=== PATIENT | female | born 1940 | race Caucasian/White ===

== ENCOUNTER → 2017-04-20 | Outpatient (CLI) | payer OTHER, MEDICARE | LOC: FIMAGING 14:49 | PROVIDERS: ATTEND Orthopaedic Surgery | DX: M17.11 Unilateral primary osteoarthritis, right knee (principal) ==

== ENCOUNTER 2017-05-10 06:40 | Observation (INO) | payer OTHER, MEDICARE ==
[2017-04-19 11:50] LABS: % IMMATURE GRANULYOCYTES 0.6 % (0.0-1.1); ABSOLUTE IMMATURE GRANULOCYTES 0.03 10^3/uL (0.00-0.10); ADD DIFF? NO; ADD MORPH? NO; ADD SCAN? NO; ATYPICAL LYMPHOCYTE FLAG 0 (0-99); FRAGMENT RBC FLAG 0 (0-99); HEMATOCRIT 44.8 % (38.0-47.0); HEMOGLOBIN 15.4 g/dL (12.6-16.3); LEFT SHIFT FLG 0 (0-99); LIPEMIA HEMOLYSIS FLAG 90 (0-99); MEAN CELL HEMOGLOBIN CONCENTR. 34.4 g/dL (32.4-36.7); MEAN CELL VOLUME 92.9 fL (81.5-99.8); PLATELET CLUMPS FLAG 0 (0-99); PLATELET COUNT 244 10^3/uL (150-400); RED BLOOD CELL COUNT 4.82 10^6/uL (4.18-5.33); RED CELL DISTRIBUTION WIDTH 11.9 % (11.5-15.2)
[~2017-05-10 06:40] MED LIST: ROPIVACAINE 0.2% 80 MG, EPINEPHrine 0.2 MG, KETOROLAC TROMETHAMINE 30 MG in BAG 0 ML IU ONE; TRANEXAMIC ACID 3,000 MG in NS 50 ML IRR ONE
[2017-05-10] MEDS ORDERED: VANCOMYCIN 1 GM VIAL ONE (06:59)
[2017-05-10] MEDS ORDERED: TRANEXAMIC ACID 3,000 MG/50 ML BAG IRR ONE (06:59)
[2017-05-10] MEDS ORDERED: FAMOTIDINE 20 MG TAB PO ONE (07:06)
[2017-05-10] MEDS ORDERED: ACETAMINOPHEN 325 MG TAB PO ONE (07:06)
[2017-05-10] MEDS ORDERED: ALENDRONATE SODIUM 70 MG TAB PO SCH (07:06)
[2017-05-10] MEDS ORDERED: DEXAMETHASONE 4 MG/ML VIAL IVP ONE (07:06)
[2017-05-10] MEDS ORDERED: ceFAZolin 2 GM/DEXTROSE 100 ML IV ONE (07:06)
[2017-05-10] MEDS ORDERED: LR 1,000 ML IV ONE (07:24)
[2017-05-10] MEDS ORDERED: PROPOFOL 200 MG/20 ML VIAL ONE ×3 (07:58→09:08)
[2017-05-10] MEDS ORDERED: MIDAZOLAM 2 MG/2 ML VIAL IVP ONE (09:03)
--- NOTE | 2017-05-10 09:03 | PDANEPAE ---
ANE History of Present Illness right knee pain ANE Past Medical History - Cardiovascular History Hx Hypertension: No Hx Arrhythmias: No Hx Chest Pain: No Hx Coronary Artery / Peripheral Vascular Disease: No Hx CHF / Valvular Disease: No Hx Palpitations: No - Pulmonary History Hx COPD: No Hx Asthma/Reactive Airway Disease: No Hx Recent Upper Respiratory Infection: No Hx Oxygen in Use at Home: No Hx Sleep Apnea: No Sleep Apnea Screening Result - Last Documented: Negative Pulmonary History Comment: SARCOIDOSIS - INHALER. PULMONARY EMBOLI X4 - Neurologic History Hx Cerebrovascular Accident: No Hx Seizures: No Hx Dementia: No - Endocrine History Hx Diabetes: No - Renal History Hx Renal Disorders: Yes Renal History Comment: TIPPED BLADDER - DOES THERAPY - Liver History Hx Hepatic Disorders: Yes Hepatic History Comment: CHOLECYSTECTOMY - Neurological & Psychiatric Hx Hx Neurological and Psychiatric Disorders: Yes Neurological / Psychiatric History Comment: DEPRESSION - Cancer History Hx Cancer: No - Congenital Disorder History Hx Congenital Disorders: No - GI History Hx Gastrointestinal Disorders: Yes Gastrointestinal History Comment: GERD - Other Health History Other Health History: BRUISES EASILY. OSTEOPOROSIS - Chronic Pain History Chronic Pain: No - Surgical History Prior Surgeries: CATARACTS. FLOYD HIP REPAIRS W/RODS. TUBE/OVARY. CHOLECYSTECTOMY. APPENDECTOMY. KIDNEY STONE. R HIP BUTCH PLACED. L HIP BUTCH PLACED. R RTC REPAIR - POST OP PE ANE Review of Systems - Exercise capacity METS (RN): 4 METS ANE Patient History - Allergies Allergies/Adverse Reactions: No Known Allergies Allergy (Verified 06/26/16 21:10) - Home Medications Home Medications: Aspirin EC [Aspirin EC 81 mg (*)] 81 mg PO DAILY 11/07/14 [Last Taken 05/05/17] Citalopram Hydrobromide [Citalopram HBr] 10 mg PO DAILY 11/07/14 [Last Taken ] Lansoprazole [Lansoprazole 30 mg tab] 30 mg PO BID 11/07/14 [Last Taken 05/09/17 ] buPROPion XL [Wellbutrin 150mg XL] 150 mg PO DAILY 11/07/14 [Last Taken 05/09/17 ] Alendronate Sodium [Fosamax 70 MG (*)] 70 mg PO WE@0700 12/07/15 [Last Taken 1 Week Ago] Fluticasone Hfa 220 Mcg [Flovent 220 MCG Hfa MDI (*)] 2 puffs IH BID 06/26/16 [ Last Taken 05/10/17] Dabigatran Etexilate Mesyl [Pradaxa 150 MG (*)] 150 mg PO BID 03/30/17 [Last Taken 05/08/17] Herbals/Supplements -Info Only 1 ea PO DAILY 03/30/17 [Last Taken 2 Weeks Ago] - NPO status NPO Since - Liquids (Date): 05/09/17 NPO Since - Liquids (Time): 23:00 NPO Since - Solids (Date): 05/09/17 NPO Since - Solids (Time): 17:00 - Anes Hx Anes Hx: no prior problems - Smoking Hx Smoking Status: Never smoked - Family Anes Hx Family Hx Anesthesia Complications: NEG ANE Labs/Vital Signs - Labs Result Diagrams: 04/19/17 11:05 - Vital Signs Blood Pressure: 137/93 Heart Rate: 74 Respiratory Rate: 16 O2 Sat (%): 93 Height: 152.4 cm Weight: 64.41 kg ANE Physical Exam - Airway Neck exam: FROM Mallampati Score: Class 2 Mouth exam: normal dental/mouth exam - Pulmonary Pulmonary: no respiratory distress - Cardiovascular Cardiovascular: regular rate and rhythym - ASA Status ASA Status: III ANE Anesthesia Plan Anesthesia Plan: general endotracheal anesthesia Regional Anesthesia: single shot NB, adductor canal FNB
[2017-05-10] MEDS ORDERED: MIDAZOLAM 2 MG/2 ML VIAL ONE (09:04)
--- NOTE | 2017-05-10 09:10 | PDHPUP ---
History & Physical Update H&P update statement: This history and physical update is based on an assessment of the patient which was completed after admission or registration (within 24 hours), but prior to the surgery/procedure. H&P update: H&P reviewed & patient examined, no change in patient's condition since H&P completed
[2017-05-10] MEDS ORDERED: fentaNYL 100 MCG/2 ML INJ ONE (09:25)
[2017-05-10] MEDS ORDERED: PROMETHAZINE HCL 25 MG/ML INJ IVP PRN ×2 (09:55→10:24)
[2017-05-10] MEDS ORDERED: fentaNYL 100 MCG/2 ML INJ IVP PRN (09:55)
[2017-05-10] MEDS ORDERED: ONDANSETRON 4 MG/2 ML VIAL IVP PRN ×2 (09:55→10:24)
[2017-05-10] MEDS ORDERED: NALOXONE HCL 0.4 MG/ML INJ IVP PRN (09:55)
[2017-05-10] MEDS ORDERED: OXYCODONE/APAP 5/325 TAB PO PRN (09:55)
[2017-05-10] MEDS ORDERED: ACETAMINOPHEN 500 MG TAB PO PRN (09:55)
[2017-05-10] MEDS ORDERED: HYDROmorphONE/DILAUDID 1 MG/ML SYR IVP PRN (09:55)
--- NOTE | 2017-05-10 10:23 | POSTOPPROG ---
Post Op Note Date of Operation: 05/10/17 Surgeon: Kai Means Reverse Engineer: yris means Anesthesiologist: dr. trivedi Anesthesia: GET(General Endotracheal), Other (Specify) (adductor canal block) Pre-op Diagnosis: right knee OA Post-op Diagnosis: same Indication: right knee pain due to OA that failed conservative measures Procedure: R med partial knee arthroplasty Findings: severe medial knee OA Inf/Abcess present in the surg proc area at time of surgery?: No EBL: 50-100
[2017-05-10] MEDS ORDERED: DIPHENOXYLATE/ATROPINE LOMOTIL 1 TAB PO PRN (10:24)
[2017-05-10] MEDS ORDERED: oxyCODONE IR 5 MG TAB PO PRN (10:24)
[2017-05-10] MEDS ORDERED: PHARMACY PAIN CONSULT 1 EA MISC PRN (10:24)
[2017-05-10] MEDS ORDERED: diphenhydrAMINE 25 MG CAP PO PRN (10:24)
[2017-05-10] MEDS ORDERED: METOCLOPRAMIDE 10 MG/2 ML VIAL IVP PRN (10:24)
[2017-05-10] MEDS ORDERED: CYCLOBENZAPRINE 10 MG TAB PO PRN (10:24)
[2017-05-10] MEDS ORDERED: MAGNESIUM HYDROXIDE 30 ML UDCUP PO PRN (10:24)
[2017-05-10] MEDS ORDERED: BISACODYL 10 MG SUPP PR PRN (10:24)
[2017-05-10] MEDS ORDERED: TEMAZEPAM 15 MG CAP PO PRN (10:24)
[2017-05-10] MEDS ORDERED: LACTULOSE 20 GM/30 ML UDCUP PO PRN (10:24)
[2017-05-10] MEDS ORDERED: ONDANSETRON DISINTEGRATING 4 MG TAB PO PRN (10:24)
[2017-05-10] MEDS ORDERED: POLYETHYLENE GLYCOL 3350 17 GM PKT PO PRN (10:24)
[2017-05-10] MEDS ORDERED: PROMETHAZINE HCL 25 MG SUPPR PR PRN (10:24)
--- NOTE | 2017-05-10 10:40 | POSTANESTH ---
Post Anesthetic Evaluation Cardiovascular Status: Normal, Stable Respiratory Status: Normal, Stable Level of Consciousness/Mental Status: Can Participate in Eval Pain Control: Adequate, Prn Tx Ordered Nausea/Vomiting Control: Adequate, Prn Tx Ordered Complications Possibly Related to Anesthesia: None Noted
[2017-05-10] MEDS: FLUTICASONE HFA 220 MCG MDI IH SCH ×2 (11:30→21:25)
[2017-05-10] MEDS: buPROPion XL 150 MG TAB PO SCH ×2 (11:30→12:10)
[2017-05-10] MEDS: PANTOPRAZOLE SODIUM 40 MG TAB PO SCH ×2 (11:30→20:31)
[2017-05-10] MEDS: CITALOPRAM 20 MG TAB PO SCH (12:09)
[2017-05-10] MEDS: LR 1,000 ML IV SCH ×2 (12:23→21:25)
[2017-05-10] MEDS: ACETAMINOPHEN 325 MG TAB PO SCH ×2 (12:23→18:05)
[2017-05-10] MEDS ORDERED: ceFAZolin 2 GM/DEXTROSE 100 ML IV SCH (14:00)
[2017-05-10] MEDS: ceFAZolin 2 GM/DEXTROSE 100 ML IV SCH (16:47)
[2017-05-10 20:23] VITALS: RESP 16
[2017-05-10] MEDS: SENNOSIDES/DOCUSATE SODIUM TAB PO SCH (20:30)
[2017-05-10] MEDS: FAMOTIDINE 20 MG TAB PO SCH (20:31)
[2017-05-11] MEDS: ACETAMINOPHEN 325 MG TAB PO SCH ×2 (00:09→05:56)
[2017-05-11] MEDS: ceFAZolin 2 GM/DEXTROSE 100 ML IV SCH (00:10)
[2017-05-11 03:21] VITALS: O2SAT 95
[2017-05-11 05:37] LABS: HEMATOCRIT 35.3 % (38.0-47.0); HEMOGLOBIN 12.3 g/dL (12.6-16.3)
[2017-05-11 08:16] VITALS: BP 133/90; PULSE 58; TEMP 97.9
[2017-05-11] MEDS: FLUTICASONE HFA 220 MCG MDI IH SCH (08:46)
[2017-05-11] MEDS ORDERED: DABIGATRAN ETEXILATE MESYL 150 MG CAP PO SCH (09:00)
[2017-05-11] MEDS ORDERED: ASPIRIN EC 81 MG TAB PO SCH (09:00)
[2017-05-11] MEDS: CITALOPRAM 20 MG TAB PO SCH (09:06)
[2017-05-11] MEDS: buPROPion XL 150 MG TAB PO SCH (09:07)
[2017-05-11] MEDS: FAMOTIDINE 20 MG TAB PO SCH (09:08)
[2017-05-11] MEDS: SENNOSIDES/DOCUSATE SODIUM TAB PO SCH (09:08)
[2017-05-11] MEDS: PANTOPRAZOLE SODIUM 40 MG TAB PO SCH (09:08)
--- NOTE | 2017-05-11 10:50 | SOAPPROG ---
SOAP Progress Note Assessment/Plan: Assessment: Patient is doing well POD 1 s/p R med MPL Pain management: pain is well controlled on oral pain meds. VTE ppx: recommend aspirin daily for 3 weeks, cont KING and SCDs Anemia: level is expected initially postop. Asymptomatic. Continue to monitor D/c planning: d/c to home today pending release from PT Plan: 05/11/17 10:50 Subjective: Yovana is doing well today, denies SOB ,chest pain and N/V. Objective: Vital Signs Temp Pulse Resp BP Pulse Ox 36.6 C 58 L 16 133/90 H 95 05/11/17 08:00 05/11/17 08:00 05/11/17 08:00 05/11/17 08:00 05/11/17 08:00 Laboratory Results 05/11/17 05:30 05/10/17 05/11/17 05/12/17 05:59 05:59 05:59 Intake Total 4037 Output Total 1163 300 Balance 2874 -300 RLE: incision dressing is clean and dry, NVI, +pf/df ICD10 Worksheet Patient Problems: Problems Problem Status Onset Primary localized osteoarthritis of right knee Acute Hip fracture Acute
--- NOTE | 2017-05-12 12:41 | GDS ---
[f rep st] DISCHARGE SUMMARY ADMISSION DIAGNOSIS: Right knee osteoarthritis. DISCHARGE DIAGNOSIS: Right knee osteoarthritis. PROCEDURE: Right partial knee arthroplasty, medial compartment, robot assisted. VTE PROPHYLAXIS: Recommend patient resume Pradaxa and aspirin. BRIEF DESCRIPTION OF HOSPITAL STAY: Patient was admitted for an elective joint arthroplasty. The p atient tolerated the procedure well and has passed physical therapy. The patient was given appropri ate antibiotic prophylaxis and venous thromboembolism prophylaxis. The patient's pain was well cont rolled on oral pain medication, patient was holding down food, and had urinated. Decision was made to discharge the patient. The patient was given post-operative prescriptions pre-operatively. PLAN: Patient will follow up as scheduled on 06/05 at 9 a.m. /[id number]/MODL
--- NOTE | 2017-05-12 19:46 | GOP ---
[f rep st] OPERATIVE REPORT DATE OF OPERATION: 05/10/2017 SURGEON: Cynthia Brooks MD ELECTRIC KNIFE OPERATOR: JOURDAN Kim ANESTHESIA: Spinal PREOPERATIVE DIAGNOSIS: Right knee osteoarthritis. POSTOPERATIVE DIAGNOSIS: Right knee osteoarthritis. PROCEDURE PERFORMED: YOANDY uni-knee. Right medial compartment partial knee replacement with computer navigation, robotic-assisted. FINDINGS: INDICATIONS: This is a 76-year-old female with progressive pain of the right knee unresponsive to c onservative care. Risks and benefits of surgical intervention were explained in detail. DESCRIPTION OF PROCEDURE: The patient was brought to the operating room and placed on the table in supine position. Spinal anesthesia was induced without difficulty. A pneumatic tourniquet was applie d about the right proximal thigh and the leg was prepped and draped in sterile fashion. Attention wa s turned first to the distal aspect of the 3 femur. At 3 cm proximal to the lateral rise of the femu r, 2 percutaneous half pins were placed for fixation of the femoral array. In a similar fashion, 2 p ins were placed anterolateral on the tibia for fixation of the tibial array. External land marking a nd registration of the hip center was performed without difficulty. After exsanguination by elevation, the tourniquet was inflated to 250 mmHg. Incision was made from the tibial tuberosity to the superior pole of the patella. Dissection was car ried out through the subcutaneous tissue to the deep fascia using Bovie electrocautery for hemostasi s. Medial parapatellar arthrotomy was carried out to the superior pole of the patella. The medial co llateral ligament was elevated and the infrapatellar fat pad was resected. Internal femoral and tibi al registration was carried out without difficulty and the femoral and tibial checkpoints were place d and verified for accuracy. Attention was turned to the femur. The foot print for the size 3 femoral component was cut with the 6 mm bur using the Tittat robotic system and verified for accuracy against the CT based plan. The hole was cut for the femoral post. In a similar fashion, the 6 mm bur was used to cut the foot print for the size 2 tibial component using the BERNIE system and verified for accuracy against the CT based plan . Attention was turned to the posterior aspect of the knee and remnants of the medial meniscus were ex cised. The posterior capsule was injected with ropivacaine, epinephrine and Toradol. Trial reduction was carried out and there was excellent range of motion, alignment and stability using the size 3 f emoral component and the size 2 tibial component., 2 x 8 mm polyethylene. All trials were then removed. The joint was thoroughly irrigated and carefully dried. One package of cement and 1 gram of vancomycin were mixed in the vacuum mixer and placed on the fixation surfaces of all components. The components were implanted and all excess cement was thoroughly removed. Impla nt placement was verified against the CT view plan and found to be excellent. The tourniquet was deflated and all bleeders were coagulated. The wound was thoroughly irrigated and closed using interrupted sutures of 2-0 Vicryl for the joint capsule. The subcu was closed with 3-0 Vicryl and the skin with 4-0 Monocryl. Dermabond and Steri-Strips were applied, followed by a compr essive dressing. The patient was then moved from the operating room to the recovery room in good con dition, having tolerated the procedure well. CASE CLASSIFICATION: Clean. /[id number]/MODL
== END 2017-05-11 12:13 | disposition home or self-care (01) ==
LOC: F3N 06:40 → INTOOBSV 06:40 → F3N 11:34
PROVIDERS: ADMIT Orthopaedic Surgery; ATTEND Orthopaedic Surgery
PROC: 0SRC0JZ Replacement of Right Knee Joint with Synthetic Substitute, Open Approach (ICD-10-PCS; principal; 2017-05-10 09:15)
PROC: 8E0YXBZ Computer Assisted Procedure of Lower Extremity (ICD-10-PCS; principal; 2017-05-10 09:15)
DX: M17.11 Unilateral primary osteoarthritis, right knee (principal); M25.561 Pain in right knee; K21.9 Gastro-esophageal reflux disease without esophagitis; D86.9 Sarcoidosis, unspecified; M81.0 Age-related osteoporosis without current pathological fracture; Z86.711 Personal history of pulmonary embolism; Z87.442 Personal history of urinary calculi; Z79.01 Long term (current) use of anticoagulants; Z79.82 Long term (current) use of aspirin
CPT/HCPCS: 20985; 27446; 73560; 97116; 97161; 97165; C1713; C1776; G8978; G8979; G8980; G8987; G8988; G8989; J0171; J0690; J1100; J1885; J2250; J2704; J2795; J3010; J3370

== ENCOUNTER → 2017-08-14 | Outpatient (CLI) | payer OTHER, MEDICARE | LOC: CIMAGING 09:22 | PROVIDERS: ATTEND Family Medicine | DX: Z12.31 Encounter for screening mammogram for malignant neoplasm of breast (principal) | CPT/HCPCS: G0202 ==

== ENCOUNTER 2017-10-07 14:27 | Emergency (ER) | payer OTHER, MEDICARE ==
[2017-10-07 15:00] VITALS: BP 121/77; PULSE 73; RESP 16; TEMP 97.5; O2SAT 95
--- NOTE | 2017-10-07 15:22 | EDPHY ---
HPI/HX/ROS/PE/MDM Narrative: CHIEF COMPLAINT: Bleeding abrasion to finger HPI: The patient is a 76-year-old female who takes Pradaxa secondary to history of multiple blood clots. Just prior to arrival, the patient scraped her left distal index finger on a razor blade, which caused significant bleeding not responding to pressure. Since arriving in the ER, this bleeding has stopped. She denies any other injuries. REVIEW OF SYSTEMS: Aside from elements discussed in the HPI, a comprehensive 10-point review of systems was reviewed and is negative. PMH: Includes multiple blood clots. Currently on Pradaxa. SOCIAL HISTORY: Retired. Here with her son. PHYSICAL EXAM: General:Patient is alert, in no acute distress. Extremities: Left hand: A small abrasion, measuring 0.25 cm is present on her left distal index finger, between the interphalangeal segments. This is not actively bleeding. There is normal capillary refill and full range of motion and strength throughout the finger. Neuro: Oriented x3. Normal motor function. Normal sensory function. MDM: This patient presents with a very minor abrasion, complicated by the fact that she takes Pradaxa which produced significant bleeding at home. The bleeding has since stopped. I think that it is at high risk for recurrence however, and I have close the wound fully with derma alcantar. We discussed strict return precautions. General Time Seen by Provider: 10/07/17 15:00 Initial Vital Signs: Initial Vital Signs Temperature (C) 36.4 C 10/07/17 14:47 Heart Rate 73 10/07/17 14:47 Respiratory Rate 16 10/07/17 14:47 Blood Pressure 121/77 H 10/07/17 14:47 O2 Sat (%) 95 10/07/17 14:47 O2 Delivery Mode Room Air Allergies/Adverse Reactions: No Known Allergies Allergy (Verified 10/07/17 14:41) Home Medications: Medication Instructions Recorded Aspirin EC [Aspirin EC 81 mg (*)] 81 mg PO DAILY 11/07/14 Citalopram Hydrobromide 10 mg PO DAILY 11/07/14 [Citalopram HBr] Lansoprazole [Lansoprazole 30 mg 30 mg PO BID 11/07/14 tab] buPROPion XL [Wellbutrin 150mg XL] 150 mg PO DAILY 11/07/14 Alendronate Sodium [Fosamax 70 MG 70 mg PO WE@0700 12/07/15 (*)] Fluticasone Hfa 220 Mcg [Flovent 2 puffs IH BID 06/26/16 220 MCG Hfa MDI (*)] Dabigatran Etexilate Mesyl 150 mg PO BID 03/30/17 [Pradaxa 150 MG (*)] Herbals/Supplements -Info Only 1 ea PO DAILY 03/30/17 Departure - Departure Disposition: Home, Routine, Self-Care Clinical Impression: Abrasion Condition: Good Instructions: Skin Adhesive Care (ED) Additional Instructions: Return to the ED if bleeding recurs. Glue will wear off in the next few days. OK to shower but try to keep wound covered with a bandaid for next few days and be gentle. Referrals: NONE *PRIMARY CARE P,. [Primary Care Provider] - As per Instructions
== END 2017-10-07 15:36 | disposition home or self-care (01) ==
LOC: CED 14:27
DX: S60.411A Abrasion of left index finger, initial encounter (principal); Z79.82 Long term (current) use of aspirin; W45.8XXA Other foreign body or object entering through skin, initial encounter

== ENCOUNTER 2017-11-25 20:05 | Inpatient (IN) | payer OTHER, MEDICARE ==
--- NOTE | 2017-11-25 20:25 | EDPHY ---
H & P Stated Complaint: trip & fall L humerus, shoulder & R knee pain Time Seen by Provider: 11/25/17 20:18 HPI/ROS: HPI: This is a 77-year-old female who presents with Chief Complaint: trip & fall L humerus, shoulder & R knee pain Location: Left upper arm, right knee Quality: Injury Duration: Prior to arrival Signs and Symptoms: No bleeding, no radiation, no numbness, no weakness, no tingling, no incontinence, + decreased range of motion, no swelling, + pain Timing: Acute Severity: 10 out 10 Context: Patient presents via EMS with complaints of accidental tripping over coke cans that were on the floor. She fell forward and landed on her left arm. She felt immediate severe, nonradiating pain. The pain was so intense it took her breath away. Her helped her up off of the floor. She denies hitting her head/LOC/amnesia/neck pain/dizziness. Takes Pradaxa and aspirin. EMS gave Versed and Fentanyl en route with moderate relief of pain. Patient reports that she accidentally fell. Six months ago she had a right knee partial replacement. She notes some pain in the anterior portion that is nonradiating in in mild moderate in nature. She was ambulatory at the scene when she was able to get up off of the floor. She is very resistant to move her left arm secondary to her knowing that she has injured "something in her left arm." Right-hand dominant. Last meal was 2 pieces of toast around 1930. Modifying Factors: see above Comment: ROS: see HPI Constitutional: No fever, no chills, no weight loss Eyes: No blurred vision Respiratory: No shortness of breath, no cough Cardiovascular: No chest pain Gastrointestinal: No nausea, no vomiting no diarrhea Genitourinary: No dysuria Extremities: No myalgias Neurologic: No weakness, no numbness Skin: No rashes Hematologic: No bruising, no bleeding MEDICAL/SURGICAL/SOCIAL HISTORY: Medical history: PE, depression, kidney stones, GERD Surgical history: Right knee partial replacement Social history: . CONSTITUTIONAL: elderly talkative pleasant white female, awake and alert, no obvious distress HEENT: Atraumatic and normocephalic, PERRL, EOMI. no globe entrapment, no raccoon eyes. no Almodovar signs.Tympanic membranes clear. No tympanic membrane rupture. Nares patent; no septal hematoma. Oropharynx clear, no exudate and moist pink mucosa. No malocclusion. no dental trauma. Airway patent. No lymphadenopathy. NECK: supple, no midline tenderness, flexion 45 degrees, extension 45 degrees, right and left lateral flexion 45 degrees. No meningismus. Cardiovascular: Normal S1/S2, regular rate, regular rhythm, without murmur rub or gallop. PULMONARY/CHEST: Symmetrical and nontender. no crepitus. Clear to auscultation bilaterally. Good air movement. No accessory muscle usage. ABDOMEN: Soft, nondistended, nontender, no ecchymosis, no rebound, no guarding , no peritoneal signs, no masses or organomegaly. No CVAT. PELVIC: no pain with rocking; bilateral hips flexion 125 degrees, extension 30 degrees, with no pain internal rotation and no pain external rotation. BACK: No midline tenderness, no paraspinous spasm, deep tendon reflexes 2/2, no pain with straight leg raise EXTREMITIES: 2/2 radial and DP/PT pulses, patient is very guarded with her left arm. Left WRIST: Extension to 70, flexion to 80, radial deviation to 20 degree, ulnar deviation to 30, no scaphoid tenderness, no tenderness over ulnar styloid, no tenderness over radial styloid. Left ELBOW: Full extension to 180, flexion to 100, no tenderness over medial epicondyle, no tenderness over lateral epicondyle, no effusion. Left SHOULDER: Able to perform shoulder shrug only. No clavicular deformity appreciated. no Tenderness to palpation over AC joint. Right KNEE: no effusion, no medial and lateral joint line tenderness, full extension to 180, flexion to 90. No pain with varus and valgus exam. No pain with anterior drawer or posterior drawer test. Remote well -healed incision noted anteriorly. no deformities, no clubbing, no cyanosis or edema. NEUROLOGICAL: no focal neuro deficits. GCS 15. SKIN: Warm and dry, no erythema. no rash. Good capillary refill. Source: Patient, Family, EMS Exam Limitations: No limitations - Personal History Current Tetanus/Diphtheria Vaccine: Unsure Current Tetanus Diphtheria and Acellular Pertussis (TDAP): Unsure Tetanus Vaccine Date: 2013 - Medical/Surgical History Hx Asthma: No Hx Chronic Respiratory Disease: No Hx Diabetes: No Hx Cardiac Disease: No Hx Renal Disease: No Hx Cirrhosis: No Hx Alcoholism: No Hx HIV/AIDS: No Hx Splenectomy or Spleen Trauma: No Other PMH: PE, depression, kidney stones, GERD - Social History Smoking Status: Never smoked Constitutional: Initial Vital Signs Temperature (C) 36.5 C 11/25/17 20:06 Heart Rate 73 11/25/17 20:06 Respiratory Rate 20 11/25/17 20:06 Blood Pressure 179/79 H 11/25/17 20:06 O2 Sat (%) 95 11/25/17 20:06 O2 Delivery Mode Room Air Allergies/Adverse Reactions: No Known Allergies Allergy (Verified 10/07/17 14:41) Home Medications: Medication Instructions Recorded Aspirin EC [Aspirin EC 81 mg (*)] 81 mg PO DAILY 11/07/14 Citalopram Hydrobromide 10 mg PO DAILY 11/07/14 [Citalopram HBr] buPROPion XL [Wellbutrin 150mg XL] 150 mg PO DAILY 11/07/14 Alendronate Sodium [Fosamax 70 MG 70 mg PO WE@0700 12/07/15 (*)] Fluticasone Hfa 220 Mcg [Flovent 2 puffs IH BID 06/26/16 220 MCG Hfa MDI (*)] Herbals/Supplements -Info Only 1 ea PO DAILY 03/30/17 Dabigatran Etexilate Mesyl 150 mg PO BID 11/25/17 [Pradaxa 150 MG (*)] Lansoprazole [Lansoprazole 15 mg] 30 mg PO DAILY 11/25/17 Tamsulosin HCl [Flomax 0.4 MG (*)] 0.4 mg PO HS 11/25/17 Medical Decision Making - Diagnostics Imaging Results: Imaging Impressions Knee X-Ray 11/25/17 20:17 Impression: 1. Acute mildly displaced midpole patellar fracture with prepatellar soft tissue swelling and suprapatellar joint effusion. 2. Stable positioning of the medial femoral-tibial compartment hemiarthroplasty , compared to 05/10/2017. Elbow X-Ray 11/25/17 20:18 Impression: There is no acute fracture identified (although the study is slightly limited because of patient positioning). Shoulder X-Ray 11/25/17 20:18 Impression: Acute fracture of the surgical neck of the proximal left humerus with butterfly avulsion of the greater tuberosity. Wrist X-Ray 11/25/17 20:18 Impression: 1. There is no acute fracture identified. 2. Chondrocalcinosis with scapholunate diastasis. 3. Advanced degenerative change involving the distal radial intercarpal row and the thumb carpometacarpal joint. If there is a high clinical concern regarding an occult fracture, conservative management and short-term repeat radiographic follow-up in 7-14 days is suggested. Procedures: Procedure: Splint placement. A left coaptation splint/swath was applied by the Emergency Room isotope technician. After application of the splint I returned and re-examined the patient. The splint was adequately immobilizing the joint and distal to the splint the patient's circulation and sensation was intact. Procedure: Splint placement. A left knee immobilizer was applied by the Emergency Room isotope technician. After application of the splint I returned and re-examined the patient. The splint was adequately immobilizing the joint and distal to the splint the patient's circulation and sensation was intact. ED Course/Re-evaluation: Left shoulder x-ray, left elbow x-ray, left wrist x-ray, right knee x-ray ordered Fall was accidental in nature and witnessed. No neurological deficits. Patient is over 65 years old but denies hitting head as well as wanting Head CT. KNEE: no effusion, medial and lateral joint line tenderness, full extension to 180, flexion to 120. No pain with varus and valgus exam. No pain with anterior drawer or posterior drawer test. x-ray my read shows patellar fracture ; transverse; placed in knee immobilizer Left shoulder x-ray my read shows humeral head fracture; placed in coaptation splint with swath No signs of neurovascular compromise/tenting of skin/compartment syndrome/ extremities and joints examined above and below area of concern and are neurovascularly intact. 2130: ED decision to consult for admission. Patient is unable to bear weight and has fractures in two extremities in advanced age. Spoke with trauma, Dr. Martinez who agrees with downgrading from limited trauma, spoke with hospitalist , Dr. Abbie Garza who agrees with admitting patient for further care and Orthopedics, Dr. Chin, who kindly agrees to consult on patient. Pain currently controlled with 1 dose of IV Dilaudid 1 mg while in the emergency room. This patient was seen under the supervision of my secondary supervising physician. I evaluated care for this patient independently. Discussed this patient with Dr. Goldstein who did not see the patient. Differential Diagnosis: Differential diagnosis includes fracture, nerve injury, ligament injury, sprain , contusion. - Data Points Medications Given: Discontinued Medications Hydromorphone HCl (Dilaudid) 1 mg IVP EDNOW ONE Stop: 11/25/17 20:54 Last Admin: 11/25/17 20:55 Dose: 1 mg Departure - Departure Disposition: [facility] Inpatient Acute Clinical Impression: Chronic anticoagulation Fracture of right patella Qualifiers: Encounter type: initial encounter Fracture type: closed Fracture morphology: longitudinal Fracture alignment: nondisplaced Qualified Code(s): S82.024A - Nondisplaced longitudinal fracture of right patella, initial encounter for closed fracture Fracture of humeral head, left, closed Qualifiers: Encounter type: initial encounter Qualified Code(s): S42.292A - Other displaced fracture of upper end of left humerus, initial encounter for closed fracture Condition: Fair
[2017-11-25] MEDS ORDERED: HYDROmorphONE/DILAUDID 1 MG/ML INJ ONE (20:51)
[2017-11-25] MEDS ORDERED: NS 50 ML BAG IV ONE (20:52)
[2017-11-25] MEDS ORDERED: HYDROmorphONE/DILAUDID 1 MG/ML INJ IVP ONE (20:53)
[2017-11-25] MEDS ORDERED: ACETAMINOPHEN 325 MG TAB PO PRN (21:50)
[2017-11-25] MEDS ORDERED: ONDANSETRON 4 MG/2 ML VIAL IVP PRN (21:50)
[2017-11-25] MEDS: HYDROCODONE/APAP 5/325 TAB PO PRN (23:47)
--- NOTE | 2017-11-26 00:02 | PDCONSULT ---
[employer] Note: Orthopaedics Consult Note DOS: 11/25/2017 CC: Right knee pain, Left shoulder pain HPI: Called by ED to see patient on floor, getting admitted to hospitalist for multiple fractures. 77y F h/o multiple clots s/p SLF at home p/w Right knee patella fracture and Left shoulder fracture. Patient tripped on an unseen case of bad [place] Coke at home. No LOC. Was unable to ambulate afterwards. Immediate RLE, LUE pain. PMHx: Multiple blood clots, kidney stone PSHx: Includes Right unicondylar knee replacement (7 months ago), Bilateral hip cephalomedullary nails, Right rotator cuff surgery, Cataract surgery, appendectomy and cholecystectomy, gynecologic procedure (mistaken ectopic dx) All: NKDA SocHx: nonsmoker, no EtOH, No recreational substances. Lives with ROS: was at baseline prior to this injury except for recent kidney stone diagnosis prompting flomax rx. poor eyesight. PE: AxOx4. Unlabored breathing. Hearing intact to spoken word RUE: full ROM, no TTP, SILT LUE: TTP at shoulder joint. SILT A/R/U/M. 4/5 EPL/APB/FDS/FDP2,5/IO, 2+ DP. In splint RLE: no log roll pain. TTP along patella. Visible knee effusion. Mild edema of knee. SILT S/S/SP/DP/T. 5/5 EHL/FHL/TA/GS. Unable to maintain knee extension leg raise due to pain at knee cap. 2+ DP LLE: NVI, moving well, active ROM Imaging: R patella displaced fracture, transverse. Joint effusion seen. Unicondylar knee implant present - doesn't appear loose. Left shoulder shows reduced glenohumeral joint, valgus impacted humeral neck fracture with GT fragment. A/P: 77y RHD F p/w Left proximal humerus fracture and Right patella fracture - Nonop treatment for Left proximal humerus fracture. We discussed that it might be problematic and require surgery in the future, but there is a reasonable likelihood that if it heals in its current position that she'll not notice big deficits - ORIF Right patella fracture planned for tomorrow given unstable knee extension mechanism. We discussed risks of surgery including infection, bleeding , neurovascular injury, nonunion, malunion, painful hardware, loss of limb, . - Hold pradaxa - Labs plus type and cross 2 units - Appreciate hospitalist care
--- NOTE | 2017-11-26 00:52 | PDGENHP ---
History and Physical - Chief Complaint Fall - History of Present Illness 77 yo F w/ hx of PE's on lifelong AC w/ dabigatran, OA, osteoporosis and multiple orthopedic surgeries in the past presents after a fall. Patient reports she stubbed her toe while in the kitchen at home and fell on her L shoulder and R knee. Evaluation upon arrival in the ED was notable for L humeral fracture and R patellar fracture. Patient is currently doing well with complaints of only minimal pain. She is being admitted for pain control and orthopedic consultation. Her last dose of dabigatran was this morning. History Information - Allergies/Home Medication List Allergies/Adverse Reactions: No Known Allergies Allergy (Verified 10/07/17 14:41) Home Medications: Aspirin EC [Aspirin EC 81 mg (*)] 81 mg PO DAILY 11/07/14 [Last Taken 11/25/17] Citalopram Hydrobromide [Citalopram HBr] 10 mg PO DAILY 11/07/14 [Last Taken 01/07] buPROPion XL [Wellbutrin 150mg XL] 150 mg PO DAILY 11/07/14 [Last Taken 11/25/17 ] Alendronate Sodium [Fosamax 70 MG (*)] 70 mg PO WE@0700 12/07/15 [Last Taken ] Fluticasone Hfa 220 Mcg [Flovent 220 MCG Hfa MDI (*)] 2 puffs IH BID 06/26/16 [ Last Taken 11/25/17] Herbals/Supplements -Info Only 1 ea PO DAILY 03/30/17 [Last Taken 2 Weeks Ago ~ 04/26/17] Dabigatran Etexilate Mesyl [Pradaxa 150 MG (*)] 150 mg PO BID 11/25/17 [Last Taken 11/25/17 08:00] Lansoprazole [Lansoprazole 15 mg] 30 mg PO DAILY 11/25/17 [Last Taken 11/25/17] Tamsulosin HCl [Flomax 0.4 MG (*)] 0.4 mg PO HS 11/25/17 [Last Taken 11/24/17] I have personally reviewed and updated: family history, medical history - Past Medical History DVT - Surgical History Additional surgical history: Multiple orthopedic surgeries (b/l hips, R knee, R shoulder) - Family History Additional family history: Denies family hx of blood clots - Social History Smoking Status: Never smoked Review of Systems Review of Systems: ROS: 10pt was reviewed & negative except for what was stated in HPI & below Physical Exam Physical Exam: Temp Pulse Resp BP Pulse Ox 37.1 C 105 H 18 113/76 96 11/26/17 00:23 11/26/17 00:23 11/26/17 00:23 11/26/17 00:23 11/26/17 00:23 O2 (L/minute) 2 Constitutional: no apparent distress, appears nourished Eyes: PERRL, EOMI Ears, Nose, Mouth, Throat: moist mucous membranes, no oral mucosal ulcers Cardiovascular: regular rate and rhythym, systolic murmur Respiratory: no respiratory distress, clear to auscultation Gastrointestinal: normoactive bowel sounds, soft, non-tender abdomen Skin: warm, normal color Musculoskeletal: other (L arm in sling, R knee in immobilizer) Neurologic: AAOx3, CN II-XII Intact Psychiatric: interacting appropriately, not anxious Lab Data & Imaging Review Imaging Review: Imaging Impressions Knee X-Ray 11/25/17 20:17 Impression: 1. Acute mildly displaced midpole patellar fracture with prepatellar soft tissue swelling and suprapatellar joint effusion. 2. Stable positioning of the medial femoral-tibial compartment hemiarthroplasty , compared to 05/10/2017. Elbow X-Ray 11/25/17 20:18 Impression: There is no acute fracture identified (although the study is slightly limited because of patient positioning). Shoulder X-Ray 11/25/17 20:18 Impression: Acute fracture of the surgical neck of the proximal left humerus with butterfly avulsion of the greater tuberosity. Wrist X-Ray 11/25/17 20:18 Impression: 1. There is no acute fracture identified. 2. Chondrocalcinosis with scapholunate diastasis. 3. Advanced degenerative change involving the distal radial intercarpal row and the thumb carpometacarpal joint. If there is a high clinical concern regarding an occult fracture, conservative management and short-term repeat radiographic follow-up in 7-14 days is suggested. Assessment & Plan Assessment: 77 yo F w/ hx of PE's on lifelong AC, osteoporosis, and multiple prior orthopedic surgeries presents after a fall and found to have L humeral and R patellar fractures. Plan: 1. R patellar fracture - As a result of mechanical fall; per discussion with Dr. Chin will require surgical intervention. Last dose of dabigatran was on the morning prior to admission. - NPO @ MN - Hold dabigatran - Pain control 2. L humeral fracture - Non-surgical per discussion with Dr. Chin. Arm placed in sling. 3. Hx of PE - Patient has first PE 8-10 years ago provoked by shoulder surgery. Since that time she reports 4 or 5 additional episodes of PE's provoked by minor trauma. She is on lifelong AC w/ dabigatran. - Hold dabigatran for upcoming surgery - Would restart as soon as able noting high risk of VTE 4. Osteoporosis - On Fosamax as outpatient 5. OA - S/p b/l MAGDA's, partial R knee replacement, and R rotator cuff surgery. Diet - NPO @ [place] Code - Full Ppx - SCDs Dispo - Admit to inpatient status noting need for pain control, rehab, and surgical intervention
[2017-11-26] MEDS: HYDROCODONE/APAP 5/325 TAB PO PRN ×3 (03:42→18:35)
[2017-11-26 04:51] LABS: PLATELET COUNT 193 10^3/uL (150-400)
[2017-11-26 05:00] LABS: INR 1.21 (0.83-1.16); PROTIME(PATIENT) 15.5 SEC (12.0-15.0)
--- NOTE | 2017-11-26 06:18 | PDMN ---
Medical Necessity Medical necessity: C/M review: est. > 2 MN LOS for eval and TX of acute right patellar fracture, acute left humeral fracture requiring planned 11/26/2017 surgical intervention, ongoing preop NPO, hole dabigatran, pain management, comorbid mechanical fall just prior to this admission, history of PE's on lifelong anticoagulation with dabigatran, osteoarthritis, osteoporosis, multiple orthopedic surgeries, DVT per H/P.
[2017-11-26] MEDS ORDERED: ceFAZolin 2 GM/SWFI 2 GM/20 ML SYR IVP ONE (12:04)
[2017-11-26] MEDS ORDERED: ceFAZolin 2 GM/SWFI 20 ML SYR IVP ONE (12:07)
--- NOTE | 2017-11-26 12:14 | PDANEPAE ---
ANE History of Present Illness fracture of R patella, s/p fall. Also with fracture of proximal humerus ANE Past Medical History - Cardiovascular History Hx Hypertension: No Hx Arrhythmias: No Hx Chest Pain: No Hx Coronary Artery / Peripheral Vascular Disease: No Hx CHF / Valvular Disease: No Hx Palpitations: No - Pulmonary History Hx COPD: No Hx Asthma/Reactive Airway Disease: No Hx Recent Upper Respiratory Infection: No Hx Oxygen in Use at Home: No Hx Sleep Apnea: No Sleep Apnea Screening Result - Last Documented: Negative Pulmonary History Comment: SARCOIDOSIS - INHALER. PULMONARY EMBOLI X4 - Neurologic History Hx Cerebrovascular Accident: No Hx Seizures: No Hx Dementia: No - Endocrine History Hx Diabetes: No Obesity: moderate - Renal History Hx Renal Disorders: Yes Renal History Comment: TIPPED BLADDER - DOES THERAPY - Liver History Hx Hepatic Disorders: Yes Hepatic History Comment: CHOLECYSTECTOMY - Neurological & Psychiatric Hx Hx Neurological and Psychiatric Disorders: Yes Neurological / Psychiatric History Comment: DEPRESSION - Cancer History Hx Cancer: No - Congenital Disorder History Hx Congenital Disorders: No - GI History GERD: mild Hx Gastrointestinal Disorders: Yes Gastrointestinal History Comment: GERD - Other Health History Other Health History: BRUISES EASILY. OSTEOPOROSIS - Chronic Pain History Chronic Pain: No - Surgical History Prior Surgeries: CATARACTS. FLOYD HIP REPAIRS W/RODS. TUBE/OVARY. CHOLECYSTECTOMY. APPENDECTOMY. KIDNEY STONE. R HIP BUTCH PLACED. L HIP BUTCH PLACED. R RTC REPAIR - POST OP PE ANE Review of Systems Review of Systems: - Exercise capacity METS (RN): 4 METS ANE Patient History - Allergies Allergies/Adverse Reactions: No Known Allergies Allergy (Verified 10/07/17 14:41) - Home Medications Home Medications: Aspirin EC [Aspirin EC 81 mg (*)] 81 mg PO DAILY 11/07/14 [Last Taken 11/25/17] Citalopram Hydrobromide [Citalopram HBr] 10 mg PO DAILY 11/07/14 [Last Taken 01/07] buPROPion XL [Wellbutrin 150mg XL] 150 mg PO DAILY 11/07/14 [Last Taken 11/25/17 ] Alendronate Sodium [Fosamax 70 MG (*)] 70 mg PO WE@0700 12/07/15 [Last Taken ] Fluticasone Hfa 220 Mcg [Flovent 220 MCG Hfa MDI (*)] 2 puffs IH BID 06/26/16 [ Last Taken 11/25/17] Herbals/Supplements -Info Only 1 ea PO DAILY 03/30/17 [Last Taken 2 Weeks Ago ~ 04/26/17] Dabigatran Etexilate Mesyl [Pradaxa 150 MG (*)] 150 mg PO BID 11/25/17 [Last Taken 11/25/17 08:00] Lansoprazole [Lansoprazole 15 mg] 30 mg PO DAILY 11/25/17 [Last Taken 11/25/17] Tamsulosin HCl [Flomax 0.4 MG (*)] 0.4 mg PO HS 11/25/17 [Last Taken 11/24/17] - NPO status NPO Since - Liquids (Date): 11/26/17 NPO Since - Liquids (Time): 00:01 NPO Since - Solids (Date): 11/26/17 NPO Since - Solids (Time): 00:01 - Smoking Hx Smoking Status: Never smoked - Family Anes Hx Family Hx Anesthesia Complications: NEG ANE Labs/Vital Signs - Labs Result Diagrams: 11/26/17 04:37 11/26/17 04:37 - Vital Signs Blood Pressure: 120/74 Heart Rate: 84 Respiratory Rate: 16 O2 Sat (%): 94 Height: 152.4 cm Weight: 61.689 kg ANE Physical Exam - Airway Neck exam: FROM Mallampati Score: Class 1 Mouth exam: normal dental/mouth exam (missing L upper front tooth, upper front caps) - Pulmonary Pulmonary: clear to auscultation - Cardiovascular Cardiovascular: regular rate and rhythym - ASA Status ASA Status: III ANE Anesthesia Plan Anesthesia Plan: general endotracheal anesthesia
[2017-11-26] MEDS ORDERED: DEXAMETHASONE 4 MG/ML VIAL ONE (12:27)
[2017-11-26] MEDS ORDERED: PROPOFOL 200 MG/20 ML VIAL ONE (12:27)
[2017-11-26] MEDS ORDERED: fentaNYL 100 MCG/2 ML INJ ONE ×3 (12:27→14:24)
[2017-11-26] MEDS ORDERED: ROCURONIUM 50 MG/5 ML VIAL ONE ×2 (12:27→12:31)
[2017-11-26] MEDS ORDERED: RANITIDINE 50 MG/2 ML VIAL ONE (12:28)
[2017-11-26] MEDS ORDERED: BUPIVACAINE 0.25% 30 ML SDV ONE (12:36)
[2017-11-26] MEDS ORDERED: LIDOCAINE 1% 300 MG/30 ML SDV ONE (12:36)
[2017-11-26] MEDS ORDERED: ESMOLOL HCL 100 MG/10 ML VIAL IV ONE (12:42)
[2017-11-26] MEDS ORDERED: PHENYLEPHRINE HCL 100 MCG/ML SYR ONE (12:52)
[2017-11-26] MEDS ORDERED: ONDANSETRON 4 MG/2 ML VIAL ONE (13:34)
--- NOTE | 2017-11-26 14:16 | HOSPPROG ---
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 First encounter, chart reviewed. Plan: 1. R patellar fracture - - As a result of mechanical fall; - to OR today with Dr. Chin - Last dose of dabigatran was on the morning prior to admission. - Hold dabigatran - Pain control 2. L humeral fracture - -Non-surgical per discussion with Dr. Chin. -Arm placed in sling. 3. Hx of PE - - Patient has first PE 8-10 years ago provoked by shoulder surgery. Since that time she reports 4 or 5 additional episodes of PE's provoked by minor trauma. - She is on lifelong AC w/ dabigatran. - Hold dabigatran for surgery - Would restart as soon as able noting high risk of VTE 4. Osteoporosis - On Fosamax as outpatient 5. OA - S/p b/l MAGDA's, partial R knee replacement, and R rotator cuff surgery. Diet - regular when ok post op Code - Full Ppx - SCDs Dispo - Admit to inpatient status noting need for pain control, rehab, and surgical intervention Subjective: No pain. No issues. Objective: Vital Signs Temp Pulse Resp BP Pulse Ox 36.9 C 84 16 120/74 94 11/26/17 11:05 11/26/17 13:25 11/26/17 13:25 11/26/17 13:25 11/26/17 13:25 Laboratory Results 11/26/17 04:37 11/26/17 04:37 11/25/17 11/26/17 11/27/17 05:59 05:59 05:59 Output Total 325 200 Balance -325 -200 PT 15.5 SEC (12.0-15.0) H 11/26/17 04:37 INR 1.21 (0.83-1.16) H 11/26/17 04:37 - Physical Exam Constitutional: no apparent distress, appears nourished, not in pain Eyes: PERRL, anicteric sclera, EOMI Ears, Nose, Mouth, Throat: moist mucous membranes, hearing normal, ears appear normal Cardiovascular: No JVD, No tachycardia, No edema Respiratory: no respiratory distress, no rales or rhonchi, reduced air movement Gastrointestinal: No tenderness, No ascites, No guarding Skin: warm, normal color, No mottled Musculoskeletal: no joint effusions, pain with ROM, muscular tenderness Psychiatric: not anxious, not encephalopathic, thought process linear ICD10 Worksheet Patient Problems: Problems Problem Status Onset Fracture of right patella Acute Fracture of humeral head, left, closed Acute Chronic anticoagulation Acute Primary localized osteoarthritis of right knee Acute Hip fracture Acute
[2017-11-26] MEDS ORDERED: HYDROmorphONE/DILAUDID 1 MG/ML INJ IVP PRN (14:20)
[2017-11-26] MEDS ORDERED: fentaNYL 100 MCG/2 ML INJ IVP PRN (14:20)
[2017-11-26] MEDS ORDERED: NALOXONE HCL 0.4 MG/ML INJ IVP PRN (14:20)
[2017-11-26] MEDS ORDERED: BACITRACIN ZINC 14.2 GM OINTTUBE TP ONE (14:25)
[2017-11-26] MEDS ORDERED: SUGAMMADEX SODIUM 200 MG/2 ML VIAL IVP ONE (14:33)
--- NOTE | 2017-11-26 15:09 | POSTOPPROG ---
Post Op Note Date of Operation: 11/26/17 Surgeon: Blaze Chin Director Of Partner Marketing: None Anesthesia: GET(General Endotracheal) Pre-op Diagnosis: Right patella fracture Post-op Diagnosis: Same Indication: Unstable extensor mechanism Procedure: ORIF Right patella fracture Inf/Abcess present in the surg proc area at time of surgery?: No EBL: Minimal
--- NOTE | 2017-11-26 15:27 | SUROPNOTE ---
[facility] Operative Report - Surgery Operative Report DOS: 11/26/2017 Attg: Blaze Chin Asst: None Preop Dx: Right patella fracture Postop Dx: Same Procedure: ORIF Right patella fracture Indication: 76y F h/o blood clots on pradaxa p/w Right knee patella fracture and Left proximal humerus fracture. Pt unable to extend leg and radiographs show diastasis of fracture site. Procedure note: After reviewing consent, the patient elected to proceed with the procedure. She was taken to the OR and transferred to the bed. Anesthesia was induced. A tourniquet was placed on the thigh and a lincoln placed. She was positioned supine. The leg was prescrubbed and then prepped and draped in typical fashion. We performed a timeout to confirm surgery, patient, site, and antibiotic status. The leg was exsanguinated and the tourniquet raised. The patient's prior anteromedial scar was partially utilized as well as a superior extension to reach the patella. Flaps were created and the patella exposed. The transverse fracture site was exposed and cleaned. A large amount of old/dark blood issued from the knee after the arthrotomy was performed. The joint was washed out with irrigation. The proximal pole was in a single piece, but the distal pole was comprised of several comminuted fragments. The anterior portion of the unicondylar replacement was visualized and appeared well fixed and intact. A bone clamp was used to transversely reduce the inferior pole fragments. A K- wire was used to hold that reduction. The superior pole was reduced to the inferior pole and two bone clamps used to hold it in position. Two K-wires were advanced anterograde along intended screw paths for the cannulated screws. Once satisfied with their position, the lateral path was drilled and a 4.0 mm cannulated partially threaded screw placed down the path. The process was repeated for the medial screw. The transverse K-wire in the inferior pole was drilled and a 3.5 cannulated screw with a washer placed there to help hold the comminution together. A 20 gauge wire was placed through the two longitudinal screws in a tension band construct. The ends were twisted to provide good compression, the ends were cut, and the twisted portion pushed down to avoid prominence. The wound was thoroughly irrigated again #1 Vicryl was used to repair the retinaculum and close the holes made for the screws in the quad/patellar tendon. 2-O vicryl was used to repair some of kaur fibers directly running over the fracture and to keep some finer comminution in good place. 0 vicryl was used to close the deep fascia over the knee. 2-O vicryl was used to close the subcutaneous layer. Tourniquet was brought down and no excessive bleeding seen A running 2-O nylon suture was used to close the skin. Local anesthetic placed around the wound. A sterile dressing was placed The knee immobilizer was put back on. Count was correct at the conclusion of the case She was taken back to PACU for further monitoring. Complications: None EBL: <25 (though about 100cc of old blood came from the knee joint when arthrotomy down.) Drains: none Specimens: None
--- NOTE | 2017-11-26 16:36 | POSTANESTH ---
Post Anesthetic Evaluation Cardiovascular Status: Normal, Stable Respiratory Status: Normal, Stable Pain Control: Adequate, Prn Tx Ordered Nausea/Vomiting Control: Adequate, Prn Tx Ordered Complications Possibly Related to Anesthesia: None Noted
--- NOTE | 2017-11-26 16:53 | ASMTCMCOM ---
CM Note CM Note Notes: Reviewed chart regarding discharge plan, pt's progress. Pt admitted s/p a fall w/ a left humeral fracture and right patellar fracture; to OR today for surgery. Pt lives w/ her . Discharge needs remain to be determined at this time. CM will cont to follow for any potential needs. Current Discharge Plan: TBD Date Signed: 11/26/2017 04:53 PM Electronically Signed By:Jessica Spencer RN
[2017-11-26] MEDS: oxyCODONE IR 5 MG TAB PO PRN (21:00)
[2017-11-26] MEDS: TAMSULOSIN HCL 0.4 MG CAP PO SCH (21:01)
[2017-11-26] MEDS: ceFAZolin 2 GM/DEXTROSE 100 ML IV SCH (21:01)
[2017-11-26] MEDS: FLUTICASONE HFA 220 MCG MDI IH SCH (22:25)
[2017-11-27] MEDS: ceFAZolin 2 GM/DEXTROSE 100 ML IV SCH (05:16)
[2017-11-27] MEDS: oxyCODONE IR 5 MG TAB PO PRN ×4 (05:16→21:03)
--- NOTE | 2017-11-27 06:31 | SOAPPROG ---
[facility] Progress Note Assessment/Plan: Assessment: 77y F p/w Right patella fracture and Left proximal humerus fracture after SLF over [place] [employer] case now s/p ORIF Right patella, continuing nonop treatment for the proximal humerus Plan: - Recommend d/c of [place] this AM, if hospitalist agrees - Recommend lovenox for anticoag as patient until patient no longer a fall risk and then restarting Pradaxa - WBAT RLE only in knee immobilizer - OK to remove immobilizer at rest in bed if leg stays straight - No knee ROM at this lianet - Keep dressing CDI - getting knee films today - Followup with Dr. Chin in 2-3 weeks for wound check at [facility]. [phone] Subjective: Pain better after pain meds got going. Objective: Vital Signs Temp Pulse Resp BP Pulse Ox 37.0 C 96 19 94/64 L 94 11/27/17 04:00 11/27/17 04:00 11/27/17 04:00 11/27/17 04:00 11/27/17 04:00 Laboratory Results 11/27/17 04:58 11/27/17 04:58 11/26/17 11/27/17 11/28/17 05:59 05:59 05:59 Intake Total 1725 Output Total 325 2450 Balance -325 -725 PT 15.5 SEC (12.0-15.0) H 11/26/17 04:37 INR 1.21 (0.83-1.16) H 11/26/17 04:37 SILT S/S/SP/DP/T. Moving toes and foot well. WWP. Knee dressing intact ICD10 Worksheet Patient Problems: Problems Problem Status Onset Chronic anticoagulation Acute Fracture of humeral head, left, closed Acute Fracture of right patella Acute Hip fracture Acute Primary localized osteoarthritis of right knee Acute
[2017-11-27] MEDS: FLUTICASONE HFA 220 MCG MDI IH SCH ×2 (08:04→21:48)
[2017-11-27] MEDS: CITALOPRAM 20 MG TAB PO SCH (08:40)
[2017-11-27] MEDS: buPROPion XL 150 MG TAB PO SCH (08:41)
[2017-11-27] MEDS: PANTOPRAZOLE SODIUM 40 MG TAB PO SCH (08:41)
[2017-11-27] MEDS ORDERED: Herbals/Supplements -Info Only PO SCH (09:00)
--- NOTE | 2017-11-27 11:15 | ASMTCMCOM ---
CM Note CM Note Notes: Per PT, SNF recommended for patient. She is POD #1 R patella ORIF and requires a knee immobilizer. Patient was fairly groggy when I met with her, but she was amenable to SNF. She lives in [place], so we discussed [facility] and [facility]. I sent referrals to both, and we will await responses and revisit conversation with patient and . Current CM Discharge plan: SNF Date Signed: 11/27/2017 11:14 AM Electronically Signed By:Angelina Amin RN
[2017-11-27] MEDS: HYDROmorphONE/DILAUDID 1 MG/ML INJ IVP PRN ×2 (13:08→21:04)
--- NOTE | 2017-11-27 13:28 | HOSPPROG ---
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 First encounter, chart reviewed. Reviewed care with Dr Chin. * right patellar fracture s/p ORIF *left humeral fx non surgical sling *hx of PE (has had 2 provoked PE's after surgery) restarted Dabigatran *Gait instability concerned because she is on Pradaxa needs close monitoring due to risk of bleeding *Osteoporosis - On Fosamax as outpatient * OA - S/p b/l MAGDA's, partial R knee replacement, and R rotator cuff surgery. *DVT prophylaxis: resumed Pradaxa this evening, athrombic pumpts Dispo - she will need a SNF Subjective: Yovana is having some pain to right knee area, but overall managed. Objective: Vital Signs Temp Pulse Resp BP Pulse Ox 37.0 C 93 18 127/89 H 95 11/27/17 11:43 11/27/17 11:43 11/27/17 11:43 11/27/17 11:43 11/27/17 11:43 Laboratory Results 11/27/17 04:58 11/27/17 04:58 11/26/17 11/27/17 11/28/17 05:59 05:59 05:59 Intake Total 1725 200 Output Total 325 2450 Balance -325 -725 200 PT 15.5 SEC (12.0-15.0) H 11/26/17 04:37 INR 1.21 (0.83-1.16) H 11/26/17 04:37 - Physical Exam Constitutional: uncomfortable Eyes: PERRL Ears, Nose, Mouth, Throat: hearing normal Cardiovascular: regular rate and rhythym Respiratory: no respiratory distress Gastrointestinal: normoactive bowel sounds Skin: warm Musculoskeletal: other (right knee w swelling) Neurologic: AAOx3 Psychiatric: interacting appropriately ICD10 Worksheet Patient Problems: Problems Problem Status Onset Fracture of right patella Acute Fracture of humeral head, left, closed Acute Chronic anticoagulation Acute Primary localized osteoarthritis of right knee Acute Hip fracture Acute
[2017-11-27] MEDS ORDERED: LACTULOSE 20 GM/30 ML UDCUP PO PRN (14:43)
[2017-11-27] MEDS ORDERED: BISACODYL 10 MG SUPP PR PRN (14:43)
[2017-11-27] MEDS ORDERED: MAGNESIUM HYDROXIDE 30 ML UDCUP PO PRN (14:43)
[2017-11-27] MEDS: POLYETHYLENE GLYCOL 3350 17 GM PKT PO SCH (15:56)
[2017-11-27] MEDS: DABIGATRAN ETEXILATE MESYL 150 MG CAP PO SCH (21:04)
[2017-11-27] MEDS: SENNOSIDES/DOCUSATE SODIUM TAB PO SCH (21:05)
[2017-11-27] MEDS: TAMSULOSIN HCL 0.4 MG CAP PO SCH (21:05)
[2017-11-28] MEDS: oxyCODONE IR 5 MG TAB PO PRN ×4 (03:47→18:35)
[2017-11-28 05:10] LABS: PLATELET COUNT 148 10^3/uL (150-400)
[2017-11-28] MEDS: PANTOPRAZOLE SODIUM 40 MG TAB PO SCH (08:31)
[2017-11-28] MEDS: CITALOPRAM 20 MG TAB PO SCH (08:32)
[2017-11-28] MEDS: buPROPion XL 150 MG TAB PO SCH (08:32)
[2017-11-28] MEDS: SENNOSIDES/DOCUSATE SODIUM TAB PO SCH ×2 (08:32→22:05)
[2017-11-28] MEDS: DABIGATRAN ETEXILATE MESYL 150 MG CAP PO SCH ×2 (08:33→22:04)
[2017-11-28] MEDS: FLUTICASONE HFA 220 MCG MDI IH SCH ×2 (08:35→20:16)
[2017-11-28] MEDS: POLYETHYLENE GLYCOL 3350 17 GM PKT PO SCH (10:09)
--- NOTE | 2017-11-28 13:47 | HOSPPROG ---
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 * right patellar fracture s/p ORIF *left humeral fx non surgical sling having worsening pain today trial of Lidoderm patch scheduled Tylenol *hx of PE (has had 2 provoked PE's after surgery) restarted Dabigatran *anemia stable *Gait instability concerned because she is on Pradaxa needs close monitoring due to risk of bleeding *Osteoporosis - On Fosamax as outpatient * OA - S/p b/l MAGDA's, partial R knee replacement, and R rotator cuff surgery. *DVT prophylaxis: Pradaxa, athrombic pumps Dispo - she will need a SNF Subjective: Yovana is c/o ongoing left shoulder pain. Right knee area is better. Objective: Vital Signs Temp Pulse Resp BP Pulse Ox 36.8 C 92 16 126/65 H 92 11/28/17 11:53 11/28/17 11:53 11/28/17 11:53 11/28/17 11:53 11/28/17 11:53 Laboratory Results 11/28/17 04:53 11/28/17 04:53 11/27/17 11/28/17 11/29/17 05:59 05:59 05:59 Intake Total 1725 1500 450 Output Total 2450 1200 Balance -725 300 450 PT 15.5 SEC (12.0-15.0) H 11/26/17 04:37 INR 1.21 (0.83-1.16) H 11/26/17 04:37 - Physical Exam Constitutional: uncomfortable, No not in pain Eyes: PERRL Ears, Nose, Mouth, Throat: hearing normal Respiratory: no respiratory distress Skin: warm, normal color Musculoskeletal: generalized weakness Neurologic: AAOx3 Psychiatric: interacting appropriately ICD10 Worksheet Patient Problems: Problems Problem Status Onset Chronic anticoagulation Acute Fracture of humeral head, left, closed Acute Fracture of right patella Acute Hip fracture Acute Primary localized osteoarthritis of right knee Acute
[2017-11-28] MEDS: LIDOCAINE 5% 1 EA PATCH TD SCH (14:33)
[2017-11-28] MEDS: ACETAMINOPHEN 500 MG TAB PO SCH ×2 (16:05→23:38)
--- NOTE | 2017-11-28 19:09 | SOAPPROG ---
SODANNIELLE Progress Note Assessment/Plan: Assessment: 77y F p/w Right patella fracture and Left proximal humerus fracture after SLF over [employer] case now s/p ORIF Right patella, continuing nonop treatment for the proximal humerus Plan: - WBAT RLE only in knee immobilizer - OK to remove immobilizer at rest in bed if leg stays straight - No knee ROM - Keep dressing CDI - LUE: NWB, Splint and sling for comfort - Followup with Dr. Chin in 2-3 weeks after surgery for wound check and Left shoulder check at [facility]. [phone] Subjective: Had some prior issues with knee pain but stabilized now. Objective: Vital Signs Temp Pulse Resp BP Pulse Ox 37.4 C 108 H 16 115/87 H 94 11/28/17 16:00 11/28/17 16:00 11/28/17 16:00 11/28/17 16:00 11/28/17 16:00 Laboratory Results 11/28/17 04:53 11/28/17 04:53 11/27/17 11/28/17 11/29/17 05:59 05:59 05:59 Intake Total 1725 1500 1800 Output Total 2450 1200 200 Balance -179 484 1094 PT 15.5 SEC (12.0-15.0) H 11/26/17 04:37 INR 1.21 (0.83-1.16) H 11/26/17 04:37 RLE: CDI. in immobilizer. SILT S/S/SP/DP/T. Moving foot and toes well. WWP KAILEE: 4+/5 EPL/APB/FDS/FDP2,5/IO, WWP, SILT A/R/U/M ICD10 Worksheet Patient Problems: Problems Problem Status Onset Chronic anticoagulation Acute Fracture of humeral head, left, closed Acute Fracture of right patella Acute Hip fracture Acute Primary localized osteoarthritis of right knee Acute
[2017-11-28] MEDS ORDERED: PATCH REMOVAL 1 EA PATCH TD SCH (21:00)
[2017-11-28] MEDS: TAMSULOSIN HCL 0.4 MG CAP PO SCH (22:05)
[2017-11-29] MEDS ORDERED: ALENDRONATE SODIUM 70 MG TAB PO SCH (07:00)
[2017-11-29] MEDS: oxyCODONE IR 5 MG TAB PO PRN ×2 (07:01→15:08)
[2017-11-29 07:44] VITALS: BP 120/67; PULSE 91; RESP 15; TEMP 98.6; O2SAT 97
[2017-11-29] MEDS: DABIGATRAN ETEXILATE MESYL 150 MG CAP PO SCH (07:46)
[2017-11-29] MEDS: POLYETHYLENE GLYCOL 3350 17 GM PKT PO SCH (08:31)
[2017-11-29] MEDS: SENNOSIDES/DOCUSATE SODIUM TAB PO SCH (08:31)
[2017-11-29] MEDS: buPROPion XL 150 MG TAB PO SCH (08:32)
[2017-11-29] MEDS: PANTOPRAZOLE SODIUM 40 MG TAB PO SCH (08:32)
[2017-11-29] MEDS: ACETAMINOPHEN 500 MG TAB PO SCH ×2 (08:32→16:29)
[2017-11-29] MEDS: CITALOPRAM 20 MG TAB PO SCH (08:33)
--- NOTE | 2017-11-29 08:39 | HOSPPROG ---
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 * right patellar fracture s/p ORIF *left humeral fx non surgical sling having worsening pain today trial of Lidoderm patch scheduled Tylenol *hx of PE (has had 2 provoked PE's after surgery) restarted Dabigatran *anemia drop in h/h, will have monitored at [facility] *Gait instability concerned because she is on Pradaxa needs close monitoring due to risk of bleeding *Osteoporosis - On Fosamax as outpatient * OA - S/p b/l MAGDA's, partial R knee replacement, and R rotator cuff surgery. *DVT prophylaxis: Pradaxa, athrombic pumps Dispo -snf today Subjective: Yovana is feeling well, pain is better managed. Objective: Vital Signs Temp Pulse Resp BP Pulse Ox 37.0 C 91 15 120/67 97 11/29/17 07:43 11/29/17 07:43 11/29/17 07:43 11/29/17 07:43 11/29/17 07:43 Laboratory Results 11/29/17 04:21 11/28/17 04:53 11/28/17 11/29/17 11/30/17 05:59 05:59 05:59 Intake Total 1500 1800 Output Total 1200 650 250 Balance 300 1150 -250 PT 15.5 SEC (12.0-15.0) H 11/26/17 04:37 INR 1.21 (0.83-1.16) H 11/26/17 04:37 - Physical Exam Constitutional: no apparent distress, appears nourished, not in pain Eyes: PERRL Ears, Nose, Mouth, Throat: hearing normal Respiratory: no respiratory distress Gastrointestinal: normoactive bowel sounds Skin: warm, normal color Musculoskeletal: muscular tenderness (left shoulder area) Neurologic: AAOx3 Psychiatric: interacting appropriately ICD10 Worksheet Patient Problems: Problems Problem Status Onset Chronic anticoagulation Acute Fracture of humeral head, left, closed Acute Fracture of right patella Acute Hip fracture Acute Primary localized osteoarthritis of right knee Acute
[2017-11-29] MEDS: FLUTICASONE HFA 220 MCG MDI IH SCH (09:15)
[2017-11-29] MEDS: LIDOCAINE 5% 1 EA PATCH TD SCH (09:32)
--- NOTE | 2017-11-29 09:37 | PDIAF ---
- Diagnosis Diagnosis: r patellar fx, left humerus fx, hx of PE, anemia - Medication Management Discharge Medications: Medications to Continue on Transfer Citalopram Hydrobromide [Citalopram HBr] 10 mg PO DAILY 11/07/14 [Last Taken 01/07] buPROPion XL [Wellbutrin 150mg XL] 150 mg PO DAILY 11/07/14 [Last Taken 11/25/17 ] Alendronate Sodium [Fosamax 70 MG (*)] 70 mg PO WE@0700 12/07/15 [Last Taken ] Fluticasone Hfa 220 Mcg [Flovent 220 MCG Hfa MDI (*)] 2 puffs IH BID 06/26/16 [ Last Taken 11/25/17] Herbals/Supplements -Info Only 1 ea PO DAILY 03/30/17 [Last Taken 2 Weeks Ago ~ 04/26/17] Dabigatran Etexilate Mesyl [Pradaxa 150 MG (*)] 150 mg PO BID 11/25/17 [Last Taken 11/25/17 08:00] Lansoprazole [Lansoprazole 15 mg] 30 mg PO DAILY 11/25/17 [Last Taken 11/25/17] Tamsulosin HCl [Flomax 0.4 MG (*)] 0.4 mg PO HS 11/25/17 [Last Taken 11/24/17] Acetaminophen [Tylenol ES 500 mg (*)] 1,000 mg PO TID tab 11/29/17 [Last Taken Unknown] Lidocaine 5% [Lidoderm 5% Patch (*)] 1 ea TD DAILY patch 11/29/17 [Last Taken Unknown] Patch Removal 1 ea TD DAILY21 patch 11/29/17 [Last Taken Unknown] Polyethylene Glycol 3350 [Miralax 17 gm (*)] 17 gm PO DAILY pkt 11/29/17 [Last Taken Unknown] Sennosides/Docusate Sodium [Senokot-S] 1 - 2 tab PO BID tab 11/29/17 [Last Taken Unknown] oxyCODONE IR [Oxycodone Ir (*)] 10 mg PO Q4HRS PRN tab 11/29/17 [Last Taken Unknown] Discharge Medications: Refer to the Discharge Home Medication list for PRN reason. - Orders Services needed: Physical Therapy, Occupational Therapy Isolation Type: None Diet Recommendation: no restrictions on diet Diet Texture: Regular Texture Diet Activity/Weight Bearing Restrictions: WBAT RLE only in knee immobilizer. - OK to remove immobilizer at rest in bed if leg stays straight. - No knee ROM. - Keep dressing CDI. - LUE: NWB, Splint and sling for comfort. - Followup with Dr. Chin in 2-3 weeks after surgery for wound check and Left shoulder check at [facility]. [phone] Additional: aspirin has been placed on hold until anemia improves - Labs/Radiology BMP Date: 12/01/16 HCT/HGB Date: 12/01/16 (q 3 days till stable) - Follow Up Care Current Providers and Referrals: Blaze Chin MD [Medical Doctor] - RONI SALGUERO [Primary Care Provider] - As per Instructions
--- NOTE | 2017-11-29 10:11 | GDS ---
[f rep st] DISCHARGE SUMMARY DISCHARGE DIAGNOSES: 1. Right patellar fracture. 2. Left humeral fracture. 3. History of 2 provoked pulmonary emboli. 4. Anemia. 5. Gait instability. 6. Osteoporosis. 7. Osteoarthritis. CONSULTATION: Blaze Chin MD. Briefly, the patient is a 77-year-old woman who was on lifelong anticoagulation due to provoked pulmonary emboli as well as osteoporosis. She presented to the emergency room after falling. She stubbed her toe while in the kitchen and fell on her left shoulder and right knee. It was noted that she had a right patellar fracture and left humeral fracture. She was seen and evaluated by Dr. Chin on 11/26/2017. She had an ORIF of the right patella fracture. Overall, she has done well throughout her stay. She will be discharged to a rehabilitation facility for strengthening. HOSPITAL COURSE PER PROBLEM: 1. Right patellar fracture. She is status post ORIF. She has a brace in place. She will get specific orders in regard to mobility with this at the rehab facility. 2. Left humeral fracture. This is nonsurgical. Placed her on scheduled Tylenol which has helped and Lidoderm patch. 3. History of 2 provoked PEs. Restarted her dabigatran. 4. Anemia. She had a slight decline in her hemoglobin and hematocrit. I will have this monitored at the alf facility. 5. Gait instability. There is concern because she is on Pradaxa. She needs to be closely monitored due to increased risk of bleeding. 6. Osteoporosis. Fosamax. 7. Osteoarthritis. Overall stable. DISCHARGE CONDITION: Stable. Blood pressure is 120/67, heart rate 91, respiratory rate is 15, O2 sats on 1 L 97%, respiratory rate is 15, temperature is 37 degrees Celsius. MEDICATIONS AT DISCHARGE: Please see the EMR. DISCHARGE INSTRUCTIONS: 1. Weightbearing as tolerated to her right lower extremity only when she is in the knee mobilizer. Okay to remove the immobilizer at night if her leg stays straight. No range of motion. 2. For her left upper extremity, to be nonweightbearing. Splint and sling for comfort. 3. Follow up with Dr. Chin in 2-3 weeks. 4. If she develops fever, chills, chest pain, or shortness of breath to return to the emergency room. 5. Also, aspirin has been placed on hold due to ongoing anemia. Greater than 30 minutes in discharging and coordinating her care. /[id number]/MODL LURDES
--- NOTE | 2017-11-29 10:59 | ASMTCMCOM ---
CM Note CM Note Notes: Pt medically stable for d/c to [facility] who scheduled wc transport for 17:00. Orders sent in [employer]. Date Signed: 11/29/2017 10:58 AM Electronically Signed By:GARCIA Honeycutt
[2017-11-29] MEDS ORDERED: DABIGATRAN ETEXILATE MESYL 150 MG CAP PO SCH (20:00)
--- NOTE | 2017-11-30 10:35 | ASDISCHSUM ---
Discharge Information Plan Status:SNF Medically Cleared to Leave: Discharge Date:11/29/2017 05:09 PM CM D/C Disposition:Jail Facility ADT D/C Disposition:Jail Facility Projected Discharge Date:11/28/2017 11:00 AM Transportation at D/C:Wheelchair Van Discharge Delay Reason: Follow-Up Date:11/28/2017 11:00 AM Discharge Slot: Final Diagnosis: Placement Information Referral Type:*Correction/SNF Referral ID:[id number] Provider Name:Naheed Marrero Address 1:[address] [facility] Phone Number: Address 2: Fax Number: City:[place] Selection Factors: State:[place] Patient Contact Information Contact Name:AMINA Relationship: Address:[facility] [facility] City:[place] [facility] Phone: State/Zip Code:[place] [address] Email: Financial Information Financial Class: Primary Plan Desc:MEDICARE INPATIENT Primary Plan Number:[id number] Secondary Plan Desc:[employer]/MDR SUPPLEMENT Secondary Plan Number:[id number] Assessment Information [facility] CM Progress Note CM Note CM Note Notes: Reviewed chart regarding discharge plan, pt's progress. Pt admitted s/p a fall w/ a left humeral fracture and right patellar fracture; to OR today for surgery. Pt lives w/ her . Discharge needs remain to be determined at this time. CM will cont to follow for any potential needs. Current Discharge Plan: TBD Date Signed: 11/26/2017 04:53 PM Electronically Signed By:Jessica Spencer RN [facility] CM Progress Note CM Note CM Note Notes: Per PT, SNF recommended for patient. She is POD #1 R patella ORIF and requires a knee immobilizer. Patient was fairly groggy when I met with her, but she was amenable to SNF. She lives in [place], so we discussed [facility] and [facility]. I sent referrals to both, and we will await responses and revisit conversation with patient and . Current CM Discharge plan: SNF Date Signed: 11/27/2017 11:14 AM Electronically Signed By:Angelina Amin RN [facility] CM Progress Note CM Note CM Note Notes: Pt medically stable for d/c to [facility] who scheduled wc transport for 17:00. Orders sent in [employer]. Date Signed: 11/29/2017 10:58 AM Electronically Signed By:GARCIA Honeycutt Intervention Information Intervention Type:*IM-Signed Date of Service:11/29/2017 10:07 AM Patient Type:Inpatient Staff Member:Eileen Power Hours: Discipline: Severity: Comment:
== END 2017-11-29 17:09 | DRG 516 ==
LOC: EDUNIT# → F3N 22:40
PROVIDERS: ADMIT Student in an Organized Health Care Education/Training Program; ATTEND Student in an Organized Health Care Education/Training Program
PROC: 0QSD04Z Reposition Right Patella with Internal Fixation Device, Open Approach (ICD-10-PCS; principal; 2017-11-26 12:00)
DX: S82.041A Displaced comminuted fracture of right patella, initial encounter for closed fracture (principal); S42.212A Unspecified displaced fracture of surgical neck of left humerus, initial encounter for closed fracture; D64.9 Anemia, unspecified; R26.89 Other abnormalities of gait and mobility; M81.0 Age-related osteoporosis without current pathological fracture; M19.90 Unspecified osteoarthritis, unspecified site; W01.0XXA Fall on same level from slipping, tripping and stumbling without subsequent striking against object, initial encounter; Y92.019 Unspecified place in single-family (private) house as the place of occurrence of the external cause; Z96.651 Presence of right artificial knee joint; Z79.01 Long term (current) use of anticoagulants; Z86.711 Personal history of pulmonary embolism
CPT/HCPCS: 96374; 97110-GO; 97116-GP; 97162-GP; 97166-GO; 97530-GP; 97535-GO; A4565; C1713; C1769; G8978-GP-CL; G8979-GP-CJ; G8987-GO-CL; G8988-GO-CJ; J0690; J1100; J1170; J2370; J2405; J2704; J2780; J3010; L1830

== ENCOUNTER → 2018-10-18 | Outpatient (CLI) | payer OTHER, MEDICARE | LOC: CIMAGING 14:23 | PROVIDERS: ATTEND Family Medicine | DX: Z12.31 Encounter for screening mammogram for malignant neoplasm of breast (principal) ==